=== PATIENT | male | born 1990 | race Caucasian/White ===

== ENCOUNTER 2022-04-23 02:55 | Emergency (ER) | payer MEDICAID, SELFPAY ==
--- NOTE | 2022-04-23 03:20 | ED.GENADULT ---
HPI - General Adult General Time Seen by Provider: 03:21 Date Seen: 04/23/22 Chief complaint: Abdominal Pain Stated complaint: Left Side Pain Time Seen by Provider: 04/23/22 03:20 Source: patient, RN notes reviewed and old records reviewed Mode of arrival: ambulatory Limitations: no limitations History of Present Illness HPI narrative: 32-year-old male presents with left flank pain and left lower quadrant abdominal pain. Left back pain started yesterday but has gotten progressively worse overnight. It is now radiating into the left lower quadrant of the abdomen. He noted some testicular pain earlier as well. Denies dysuria, hematuria. Has nausea without vomiting, no diarrhea. Prior appendectomy. Took ibuprofen and amoxicillin for this yesterday, nothing recently. Pain is worse with movement, constant in getting more severe. Related Data Home Medications Medication Instructions Recorded Confirmed ibuprofen 200 mg tablet (Advil) 400 mg PO Q6-8H PRN 04/23/22 04/23/22 meloxicam 7.5 mg tablet 7.5 mg PO DAILY 04/23/22 04/23/22 Allergies Allergy/AdvReac Type Severity Reaction Status Date / Time No Known Drug Allergies Allergy Verified 04/23/22 03:27 Review of Systems Status of ROS: Reports: 10 or more systems reviewed and unremarkable except as noted in History and below PFSH PFSH Social History Smoking Status: Never smoker Do you use any of these nicotine containing products: None Second hand tobacco smoke exposure: No How often do you have six or more drinks on one occasion: Never AUDIT-C Alcohol total score: 0 Non-prescribed substance use: denies use service: No Exam Narrative: Exam Narrative: General: Well-developed and well-nourished, no acute distress Head: Atraumatic and normocephalic Eyes: Pupils are equal reactive, extraocular motions intact, conjunctiva clear ENT: External nose and ears are normal, posterior pharynx without erythema or exudate Neck: No midline cervical tenderness, full spontaneous range of motion the neck, trachea midline, no adenopathy Heart: Regular rate and rhythm no murmurs or thrills Lungs: Clear to auscultation bilaterally without wheezes or crackles Abdomen: Left lower quadrant tenderness, left CVA tenderness Musculoskeletal: No tenderness, deformity, or edema Neurologic: Awake, alert, and oriented x3, no gross focal neurologic deficits, cranial nerves intact as tested Psych: Mood and affect are appropriate Skin: No rashes Const: Vital Signs, click to edit/add: Vital Signs - 24 hr 04/23/22 03:23 04/23/22 04:42 Temperature 97.5 F L Pulse Rate [Right Pulse Oximeter] 47 L 52 L Respiratory Rate 22 16 Blood Pressure [Le ft Upper Arm] 124/79 122/90 H Pulse Oximetry 98 98 Oxygen Delivery Me thod Room Air Room Air Course Course Hospital Course: Patient seen and examined, prior records reviewed. Patient presents with left flank and left lower quadrant pain. Kidney stone likely, consider also diverticulitis, colitis. Musculoskeletal pain possible but less likely, no history of injury. This could up also represent shingles although he really has no paresthesia or hyperesthesia and no rash. Labs, CT scan are ordered for evaluation. Toradol and Zofran ordered for pain and nausea. Reevaluation(s) Reevaluation #1: Labs so far demonstrate normal white blood cell count, normal renal functions. Hepatic panel and lipase are normal. CT scan personally reviewed and interpreted by me does not demonstrate any acute intra-abdominal pathology, radiology interpretation agrees. No explanation for pain yet. Patient is not yet provided urine sample. Urinalysis is normal, patient will be discharged medication help pain and nausea close follow-up. Patient reexamined, pain is improved after Dilaudid IV tenderness is improved as well. No rash in the area to suggest shingles. Time: 05:11 Vital Signs Vital signs: Initial Vital Signs Temperature 97.5 F L 04/23/22 03:23 Temperature Source Temporal Artery Scan 04/23/22 03:23 Pulse Rate 47 L 04/23/22 03:23 Respiratory Rate 22 04/23/22 03:23 Blood Pressure 124/79 04/23/22 03:23 Blood Pressure Mean 94 04/23/22 03:23 Blood Pressure Position Supine 04/23/22 03:23 Pulse Oximetry 98 04/23/22 03:23 Oxygen Delivery Method 04/23/22 03:23 Vital Signs Temperature 97.5 F L 04/23/22 03:23 Pulse Rate 47 L 04/23/22 03:23 Respiratory Rate 22 04/23/22 03:23 Blood Pressure 124/79 04/23/22 03:23 Pulse Oximetry 98 04/23/22 03:23 Oxygen Delivery Method 04/23/22 03:23 Temperature 97.5 F L 04/23/22 03:23 Pulse Rate 52 L 04/23/22 04:42 Respiratory Rate 16 04/23/22 04:42 Blood Pressure 122/90 H 04/23/22 04:42 Pulse Oximetry 98 04/23/22 04:42 Oxygen Delivery Method 04/23/22 04:42 Medical Decision Making Medical Records Medical records reviewed: Yes I reviewed the patient's medical records Lab Data Lab results reviewed: Yes I reviewed the patient's lab results Labs: Lab Results 04/23/22 04/23/22 04/23/22 Range/Units 03:45 03:45 05:30 WBC 6.40 (4.50-11.00) K/uL RBC 5.03 (4.30-5.90) m/uL Hgb 15.0 (13.5-17.5) gm/dL Hct 44.4 (37.0-53.0) % MCV 88 (80-100) fL MCH 30 (26-34) pg MCHC 34 (32-36) gm/dL RDW Coeff of Trevor 12.3 (11.5-15.5) % Plt Count 208 (140-440) K/uL Neut % (Auto) 52.4 (42.0-72.0) % Lymph % (Auto) 36.4 (20-44) % [place] % (Auto) 9.7 (0.0-11.0) % Eos % (Auto) 1.1 (0.0-7.0) % Baso % (Auto) 0.2 (0.0-3.0) % Neut # (Auto) 3.36 (1.7-7.0) K/uL Lymph # (Auto) 2.33 (0.90-2.90) K/uL [place] # (Auto) 0.60 (0.00-0.90) K/UL Eos # (Auto) 0.07 (0.00-0.50) K/uL Baso # (Auto) 0.01 (0.00-0.30) K/uL Abs Immat Gran (auto) 0.01 (0.00-0.30) K/uL Imm/Tot Granulo (auto) 0.2 % Sodium 141 (135-149) mmol/L Potassium 4.3 (3.6-5.1) mmol/L Chloride 106 (96-114) mmol/L Carbon Dioxide 29 (20-32) mmol/L BUN 16 (5-24) mg/dL Creatinine 0.9 (0.5-1.5) mg/dL Estimated Creat Clear 119.41 Estimated GFR 115 ml/min Glucose 107 (60-115) mg/dL Calcium 8.8 (8.4-10.6) mg/dL Total Bilirubin 0.4 (0.1-1.5) mg/dL Direct Bilirubin 0.3 (0.0-0.5) mg/dL AST 27 (12-35) U/L ALT 27 (4-50) U/L Alkaline Phosphatase 77 (40-150) U/L Total Protein 7.0 (6.0-8.3) g/dL Albumin 4.4 (3.3-5.0) g/dL Lipase 128 (23-300) U/L Urine Color Yellow (Yellow) Urine Appearance Clear (Clear) Urine pH 6.0 (5.0-8.5) Ur Specific [place] >= 1.030 (1.000-1.030) Urine Protein Negative (Negative) Urine Glucose (UA) Negative (Negative) Urine Ketones Negative (Negative) Urine Blood Negative (Negative) Urine Nitrite Negative (Negative) Urine Bilirubin Negative (Negative) Urine Urobilinogen 0.2 (0.2-1.0) Ur Leukocyte Esterase Negative (Negative) Urine RBC 2-5 A (0-2) Urine WBC 0-2 (0-5) Ur Squamous Epith Cells None (None-Few) Urine Bacteria Few A (None) Discharge Plan Discharge Clinical Impression: Abdominal pain, LLQ, Acute left flank pain Patient Disposition: Home, Self-Care Condition: Stable Instructions: Acute Abdominal Pain (ED) Additional Instructions: No definite source for your pain was found today. No evidence for kidney stones, infection or inflammation of the intestine, or diverticulitis. Take Tylenol, ibuprofen as needed for pain, oxycodone as needed for severe pain. Take zofran as needed for nausea vomiting. Follow-up with your primary care doctor in 2-3 days for recheck. Activity Level: No Restrictions Discharge Diet: Regular Prescriptions: No Action ibuprofen [Advil] 200 mg tablet 400 mg PO Q6-8H PRN meloxicam 7.5 mg tablet 7.5 mg PO DAILY Follow Up/Referrals: Karie Harding PA-C [Primary Care Provider] - Stand Alone Forms: [facility] Info Instructions
[2022-04-23 03:23] VITALS: BP 124/79; PULSE 47; RESP 22; TEMP 36.4; O2SAT 98; BMI 28.0
--- NOTE | 2022-04-23 03:26 | CRLHL7_ITS ---
For Patients: As a result of the Century Cures Act, medical imaging exams and procedure reports are released immediately into your electronic medical record. You may view this report before your referring provider. If you have questions, please contact your health care provider. INDICATION: Left flank and left lower quadrant pain for 24 hours. History of appendectomy. COMPARISON: None available. TECHNIQUE: CT examination of the abdomen and pelvis was performed without contrast enhancement using 3 mm thick axial sections from the lung bases through the pubic symphysis. Oral contrast was not administered. Please note that all CT scans at this facility use dose modulation, iterative reconstruction, and/or weight-based dosing when appropriate to reduce radiation dose to as low as reasonably achievable. FINDINGS: In the abdomen, the unenhanced liver, spleen, pancreas, and adrenals are normal in appearance. The unenhanced kidneys are normal in appearance. The gallbladder is normal in appearance. The abdominal aorta is normal in caliber with no sign of dilatation. There is no sign of retroperitoneal mass or adenopathy. The stomach, loops of small bowel, and colon in the abdomen are normal in appearance. In the pelvis, the appendix is nonvisualized, but there is no sign of an inflammatory process in the area of the appendix. The loops of small bowel, colon, and rectum in the pelvis are normal in appearance. The prostate is normal in appearance. The urinary bladder is normal in appearance. There is no sign of pelvic or inguinal mass or adenopathy. There is no sign of free air or free fluid in the abdomen or pelvis. The lung bases are clear. There is moderate loss of disc height at L4-5 and L5-S1 consistent with moderate disc degenerative disease. There is mild loss of disc height at L3-4 from mild disc degenerative disease. IMPRESSION: Nothing seen to explain the patient`s left flank or left lower quadrant pain. No sign of left urinary system obstruction or calculus. No sign of diverticulosis or diverticulitis. Normal CT of the abdomen without contrast. Normal CT of the pelvis without contrast. Please note that all CT scans at this facility use dose modulation, iterative reconstruction, and/or weight-based dosing when appropriate to reduce radiation dose to as low as reasonably achievable. Dictated by Allan Kaplan MD @ 04/23/2022 5:00:35 AM (Electronically Signed)
[2022-04-23] MEDS: KETOROLAC 15 MG/ML inj IVP (03:54)
[2022-04-23] MEDS: ONDANSETRON 2 MG/ML inj 4 MG IVP (03:54)
[2022-04-23 03:57] LABS: Basophils Absolute Auto 0.01 K/uL (0.00-0.30); Basophils Percent Auto 0.2 % (0.0-3.0); Eosinophils Absolute Auto 0.07 K/uL (0.00-0.50); Eosinophils Percent Auto 1.1 % (0.0-7.0); Hematocrit 44.4 % (37.0-53.0); Immature Granulocytes Abs Auto 0.01 K/uL (0.00-0.30); Immature Granulocytes Pct Auto 0.2 %; Lymphocytes Absolute Auto 2.33 K/uL (0.90-2.90); Lymphocytes Percent Auto 36.4 % (20-44); Mean Corpuscular HGB Conc 34 gm/dL (32-36); Mean Corpuscular Hemoglobin 30 pg (26-34); Mean Corpuscular Volume 88 fL (80-100); Monocytes Percent Auto 9.7 % (0.0-11.0); Neutrophils Absolute Auto 3.36 K/uL (1.7-7.0); Neutrophils Percent Auto 52.4 % (42.0-72.0); Platelet Count* 208 K/uL (140-440); RDW Coefficient of Variation % 12.3 % (11.5-15.5); Red Blood Count 5.03 m/uL (4.30-5.90)
--- OUTSIDE RECORDS SUMMARY | 2022-04-23 04:04 | XMS_ITS | Clinical Summary ---
:1990 Author Organization [employer] [facility] [place] [address] Care Team Providers Name Role Phone Referring, Provider Primary Care Provider Unavailable Allergies No known active allergies Medications Medication Sig Dispensed Refills Start Date End Date Status amphetamine-dextroamp Take 1 tablet by 60 tablet 0 05/03/2012 Active hetamine (ADDERALL) mouth 2 times 20 mg tablet daily. venlafaxine (EFFEXOR Take 1 cap by 60 capsule 1 05/26/2012 Active XR) 37.5 mg Cp24 mouth daily for 7 Extended-Release days, then take 2 capsule caps daily as directed Active Problems Not on file Encounters Date Type Specialty Care Team Description 02/24/2022 Telephone Karie Harding Follow Up NEL Chang 02/22/2022 Ancillary Procedure 02/22/2022 Office Visit Karie Harding Hip Pain/prob amara (right NEL Chang hip- ) 02/22/2022 Travel 02/19/2022 Telephone Karie Harding Fax informati on NEL Chang from Last 3 Months Immunizations Name Administration Dates Next Due COVID-19 vaccine (Freepath 30mcg/0.3mL) 12YO+ 022 CAILIN-SUCROSE PF, MDV HepA-HepB (Twinrix) 05/26/2006, 04/28/2006 Inactivated Polio Vaccine 05/26/2006 Influenza Intradermal PF 18-64 yrs 03/22/2013 Influenza Virus, Unspecified 04/28/2006 Influenza, Intradermal, Quadrivalent, Pf 03/22/2013 MMR 04/28/2006, 02/07/1998 Meningococcal Vaccine (Menactra) 11/26/2005 Meningococcal Vaccine (Menomune) 04/28/2006 Pneumococcal Poly,23-Valent (Pneumovax) 04/28/2006 Td (Age >=7 Years) 05/26/2006, 05/19/1999 Tdap 08/25/2019 Tuberculin (PPD) 06/30/2015 Social History Tobacco Use Types Packs/Day Years Used Date Never Smoker Smokeless Tobacco: Never Used Alcohol Use Standard Drinks/Week Comments Not Currently 0 (1 standard drink = 0.6 oz pure alcoho l) Sex Assigned at Date Recorded Not on file Obstetrics History Last Filed Vital Signs Vital Sign Reading Time Taken Comments Blood Pressure 138/77 02/22/2022 3:48 PM CDT Pulse 65 02/22/2022 3:48 PM CDT Temperature 37.7 ??C (99.9 ??F) 03/17/2019 6:14 PM CDT Respiratory Rate 16 03/17/2019 8:43 PM CDT Oxygen Saturation 97% 02/22/2022 3:48 PM CDT Inhaled Oxygen Concentration - - Weight 94 kg (207 lb 3.2 oz) 02/22/2022 3:48 PM CDT Height 177.8 cm (5' 10) 03/17/2019 6:14 PM CDT Body Mass Index 29.73 03/17/2019 6:14 PM CDT Plan of Treatment Health Maintenance Due Date Last Done Comments BMI (ht and wt on same day) for age 1104/19/2006 18+ Hepatitis C screening for age 18-79 2006 Influenza for age 9-49 01/28/2022 03/22/2013, 04/28/2006 COVID-19 vaccine series (3 - Booster 03/09/2022 01/12/2022, 07/22/2020 for Pfizer series) Depression screening for age 12+ 02/24/2023 02/24/2022, , 02/19/2022 Tetanus booster 08/24/2029 08/25/2019, 05/26/2006, 05/19/1999 HIV for age 15-65 Completed 03/17/2019 Tdap Completed 08/25/2019 Procedures Procedure Name Priority Date/Time Associated Diagnosis Comme nts XR HIP 1 VIEW W EDISON 02/22/2022 4:24 PM Hip pain, right Res ults for this PELVIS RIGHT CDT procedure are i n the results section. from Last 3 Months Results XR HIP 1 VIEW W PELVIS RIGHT (02/22/2022 4:24 PM CDT) Anatomical Region Laterality Modality HIPS, HIPR, Pelvis Computed Radiography Specimen (Source) Anatomical Collection Method Collection Time Re ceived Time Location / / Volume Laterality 02/23/2022 2:36 PM CDT Narrative 02/23/2022 2:36 PM CDT For Patients: ??As a result of the Cures Act, medical imaging exams and procedure report s are released immediately into your [employer] medical record. ??You may view this report before your referring provider. ??If you have questions, please contact your health care provider. Indication: Hip pain Technique: Pelvis and right hip 2 views Comparison: CT 03/17/2019 Findings: Slight convexity of the femoral head nec k junction at the superolateral aspect bilaterally. No fracture. 1.8 cm mixed density lesion within the right iliac bone, unchanged from prior and represents a be nign incidental lesion. SI joints normal . Normal symphysis pubis. 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 Dictated by Giovanny Chew MD @ Feb 23 022 ??2:36PM (Electronically Signed) ?? Procedure Note Giovanny Chew MD - 02/23/2022For matting of this note might be different from the original. For Patients: As a result of the Cures Act, medical imaging exams and procedure reports are released immediately into your electronic medical record. You may view this report before your referring provider. If you have questions, please contact [facility] health care provider. Indication: Hip pain Technique: Pelvis and right hip 2 views Comparison: CT 03/17/2019 Findings: Slight convexity of the femoral head nec k junction at the superolateral aspect bilaterally. No fracture. 1.8 cm mixed density lesion within the right iliac bone, unchanged from prior and represents a benign incidental lesion. SI joints normal. Normal symphys is pubis. 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 Dictated by Giovanny Chew MD @ Feb 23 022 2:36PM (Electronically Signed) [facility] from Last 3 Months Insurance Payer Benefit Plan / Subscriber ID Effective Dates Phone Addre ss Type Group ARE SMITA MEZA [place] [id number] 2021-Present [address] [place] [address] Care Teams Fire Protection Specialist Relationship Specialty Start Date End Date Referring, Provider PCP - General Physical Medicine and 06/14/19 Rehabilitation
[2022-04-23 04:05] LABS: Slide Review Reflex No
[2022-04-23 04:10] LABS: Chloride* 106 mmol/L (96-114); Potassium* 4.3 mmol/L (3.6-5.1); Sodium* 141 mmol/L (135-149)
[2022-04-23 04:12] LABS: Creatinine* 0.9 mg/dL (0.5-1.5); Est. Creatinine Clearance* 119.41; Estimated Glomerular Filt Rate 115 ml/min
[2022-04-23 04:13] LABS: Blood Urea Nitrogen* 16 mg/dL (5-24); Calcium* 8.8 mg/dL (8.4-10.6); Carbon Dioxide* 29 mmol/L (20-32); Glucose* 107 mg/dL (60-115)
[2022-04-23] MEDS: HYDROmorphone 0.5 mg/0.5 ml inj IVP ×2 (04:22→06:15)
[2022-04-23 04:42] VITALS: BP 122/90; PULSE 52; RESP 16; O2SAT 98
[2022-04-23 05:02] LABS: Albumin* 4.4 g/dL (3.3-5.0)
[2022-04-23 05:05] LABS: Alkaline Phosphatase* 77 U/L (40-150); Aspartate Amino Transferase* 27 U/L (12-35); Bilirubin Direct* 0.3 mg/dL (0.0-0.5); Bilirubin Total* 0.4 mg/dL (0.1-1.5); Lipase* 128 U/L (23-300)
[2022-04-23 05:06] LABS: Alanine Aminotransferase* 27 U/L (4-50)
[2022-04-23] MEDS: 0.9 % SODIUM CHLORIDE 1000 ml 1,000 ML IV (05:19)
[2022-04-23 05:51] LABS: Appearance Urine Clear (Clear); Bilirubin Urine Negative (Negative); Blood Urine Negative (Negative); Color Urine Yellow (Yellow); Glucose Urine Negative (Negative); Ketones Urine Negative (Negative); Leukocyte Esterase Urine Negative (Negative); Nitrite Urine Negative (Negative); Protein Urine Negative (Negative); Specific Gravity Urine >= 1.030 (1.000-1.030); Urobilinogen Urine 0.2 (0.2-1.0)
[2022-04-23 06:06] LABS: Bacteria Urine Few; WBC Urine 0-2 (0-5)
== END 2022-04-23 06:33 | disposition home or self-care (01) ==
PROVIDERS: Emergency Provider Family Medicine; PCP Student in an Organized Health Care Education/Training Program
DX: R10.32 Left lower quadrant pain (principal)
CPT/HCPCS: 36415; 74176; 80048; 80076; 81001; 83690; 85025; 87086; 96374; 96375; 96376; 99284; J1170; J1885; J2405; J7030